=== PATIENT | female | born 1940 | race Caucasian/White ===

== ENCOUNTER 2017-06-13 18:53 | Observation (INO) | payer OTHER, BC ==
[~2017-06-13] VITALS: Ht 160 cm; Wt 52.4 kg
[~2017-06-13 18:53] MED LIST: CIPROFLOXACIN500 M1 PO; CLONAZEPAM0.5 MG PO; CONSTULOSE10 GM/15 M PO; CYANOCOBALAM1000 MCG PO; Ecotrin PO; HYDRODIURIL,O12.5 M2 PO; LIPITOR80 MG PO; LO-DOSE ASPIRIN81 M2 PO; LOTENSIN20 M1 PO; LOTENSIN20 MG PO; MAGOX 400400 MG PO; METOPROLOL SUC100 MG PO; NEXIUM40 MG PO; TOPROL XL100 MG PO; VITAMIN D31000 UNI2 PO
[2017-06-13 20:08] LABS: MCH 29.4 PG (29.0-34.0); MCHC 33.3 G/DL (30.0-36.0); MCV 88.5 FL (83-99); MEAN PLAT.VOLUME 10.2 uM^3 (9.5-12.4); PLATELET COUNT 203 K/uL (156-360); RBC DIS.WIDTH-CV 12.7 % (11.8-14.6); RBC DIS.WIDTH-SD 41.3 % (39-53); RED BLOOD COUNT 4.52 M/uL (3.80-5.20); WHITE BLOOD COUNT 6.3 K/uL (4.1-10.2)
[2017-06-13 20:17] LABS: CHLORIDE 102 mEq/L (99-109); POTASSIUM 3.8 mEq/L (3.7-5.4); SODIUM 134 mEq/L (136-147)
[2017-06-13 20:19] LABS: GLUCOSE 107 mg/dL (70-99)
[2017-06-13 20:20] LABS: ANION GAP 10 MEQ/L (2-14)
[2017-06-13 20:23] LABS: GFR ESTIMATE (CALCULATED) > 59 mL/min/; UREA NITROGEN (BUN) 11 mg/dL (9-23)
[2017-06-13 20:31] LABS: TROP-I INTERPRETATION NEGATIVE; TROPONIN-I < 0.01 ng/mL (0.0-0.30)
[2017-06-13 21:37] LABS: TOTAL BILIRUBIN 0.2 mg/dL (0.0-1.0)
[2017-06-13 21:38] LABS: ALKALINE PHOSPHATASE 57 IU/L (3-129)
[2017-06-13 21:40] LABS: ADD MIUA? YES; BILIRUBIN NEGATIVE; BLOOD SMALL; COLOR COLORLESS ((YELLOW)); GLUCOSE (STRIP) NEGATIVE; KETONES NEGATIVE; LEUKOCYTES TRACE; NITRITE NEGATIVE; PROTEIN (STRIP) NEGATIVE; SPECIFIC GRAVITY 1.003 (1.000-1.030); UROBILINOGEN 0.2 MG/DL (0.2-1.0)
[2017-06-13 21:41] LABS: DIRECT BILIRUBIN 0.1 mg/dL (0.0-0.3)
[2017-06-13 21:42] LABS: LIPASE 30 U/L (1.0-51.0)
[2017-06-13 22:00] LABS: BACTERIA NONE SEEN /HPF; EPITHELIAL CELLS NONE SEEN /HPF; MUCUS TRACE /LPF; RED BLOOD CELLS 0-5 /HPF (0-5); UCUL ADDED? NO; WHITE BLOOD CELLS 0-5 /HPF (0-5)
[2017-06-14] MEDS ORDERED: NORVASC5 MG PO (01:06)
[2017-06-14] MEDS ORDERED: PEPCID40 MG PO (01:13)
[2017-06-14] MEDS ORDERED: FISH OIL OMEGA1 EAC1 PO (01:17)
[2017-06-14] MEDS ORDERED: MAGNESIUM250 MG PO (01:18)
[2017-06-14 03:38] VITALS: BP 149/66
[2017-06-14 08:22] VITALS: BP 125/60
[2017-06-14 09:16] LABS: TROP-I INTERPRETATION NEGATIVE; TROPONIN-I 0.02 ng/mL (0.0-0.30)
[2017-06-14 09:17] LABS: ANION GAP 6 MEQ/L (2-14); CHLORIDE 108 MEQ/L (99-109); GFR ESTIMATE (CALCULATED) > 59 mL/min/; GLUCOSE 97 mg/dL (70-99); POTASSIUM 4.1 MEQ/L (3.7-5.4); SAMPLE HEMOLYSIS CHECK 0; SAMPLE ICTERIC CHECK 0; SAMPLE LIPEMIA CHECK 0; SODIUM 142 MEQ/L (136-147); UREA NITROGEN (BUN) 8 mg/dL (9-23)
[2017-06-14 11:48] VITALS: BP 131/74
[2017-06-14 13:12] LABS: TROP-I INTERPRETATION NEGATIVE; TROPONIN-I < 0.01 ng/mL (0.0-0.30)
[2017-06-14] MEDS ORDERED: MIRALAX17 GM PO (15:03)
[2017-06-14] MEDS ORDERED: DICYCLOMINE HCL10 MG PO (15:03)
[2017-06-14] MEDS ORDERED: PANTOPRAZOLE SO40 MG PO (15:03)
[2017-06-14 15:54] VITALS: BP 162/74
[2017-06-14 16:11] VITALS: BP 101/53
== END 2017-06-14 16:15 | disposition home or self-care (01) ==
LOC: EME 18:53 → EDOF 06-14 01:42 → ENRESERV 06-14 01:44 → 5WEST 06-14 03:11
PROVIDERS: Emergency Medicine; Nurse Practitioner Adult Health
DX: K21.9 Gastro-esophageal reflux disease without esophagitis (principal); K59.00 Constipation, unspecified; R07.89 Other chest pain; I10 Essential (primary) hypertension; R73.09 Other abnormal glucose; K57.30 Diverticulosis of large intestine without perforation or abscess without bleeding; Z79.82 Long term (current) use of aspirin; Z90.49 Acquired absence of other specified parts of digestive tract; Z90.710 Acquired absence of both cervix and uterus; Z98.890 Other specified postprocedural states; Z88.0 Allergy status to penicillin; Z88.8 Allergy status to other drugs, medicaments and biological substances
CPT/HCPCS: 71020; 74177; 80048; 80076; 81003; 83690; 84484; 85027; 93005; 99281; 99285; G0378; J1200; J1644; J2765; J7030